=== PATIENT | female | born 1940 | race Caucasian/White ===

== ENCOUNTER → 2017-06-06 | Outpatient (CLI) | payer MEDICARE, BC ==
--- NOTE | ~2017-06-06 | BD1 ---
[facility] A Service of [facility] RADIOLOGY TEXT RESULTS PATIENT: RUTHANN LENNON LOCATION: [facility] : 36 UNIT #: [id number] AGE: [address]: MYNOR ZUNIGA MD SEX: F ORDER DR: [id number] [facility] [address] [place], [place] [address] [id number] O MR#: [id number] Acc #: [id number] NAME: RUTHANN LENNON : 1940 SEX: F STUDY DATE/TIME: 06/06/2017 11:19 UNIT: [facility] ROOM: STUDY DESCRIPTION: BD Dexa Bone Dens 1+ Site Attending Physician: Too Zuniga M.D. Referring Physician: Too Zuniga M.D. Ordering Physician: Too Zuniga M.D. Primary Care Physician: Too Zuniga M.D. MEDICAL IMAGING REPORT This report is preliminary unless electronic signature is present EXAM DXA scan. DATE 06/06/2017 HISTORY 76-year-old postmenopausal female for osteoporosis screening. COMPARISON None. FINDINGS L1 through L4 total bone mineral density is 0.767 g/cm2 with T-score -2.5 and Z-score 0.1, corresponding to the range of osteoporosis. The left hip total bone mineral density is 0.805 g/cm2 with T-score -1.1 and Z-score 0.9, corresponding to the range of osteopenia. IMPRESSION 1. Osteoporosis in the lumbar spine. This stratifies the patient at increased risk for fracture. Appropriate medical therapy is advised. 2. Osteopenia within the left hip. Dictated by... Francia Salazar M.D. THIS IS AN ELECTRONICALLY VERIFIED REPORT Francia Salazar M.D. at 06/08/2017 9:34 PM ISMAEL/janak TD: 06/06/2017 15:51 JOB #: [id number] [facility] A Service of [facility] RADIOLOGY TEXT RESULTS PATIENT: RUTHANN LENNON [id number] 36 UNIT #: [id number] AGE: [address]: MYNOR ZUNIGA MD SEX: F ORDER DR: MEDICAL IMAGING REPORT Page 1 of 1 COPY
== END | disposition home or self-care (01) ==
LOC: CWCC 11:02
DX: M81.0 Age-related osteoporosis without current pathological fracture (principal); Z91.89 Other specified personal risk factors, not elsewhere classified
CPT/HCPCS: 77080